=== PATIENT | male | born 2005 | race Caucasian/White ===

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

== ENCOUNTER 2025-01-29 23:14 | Emergency (ER) | payer OTHER ==
[~2025-01-29] VITALS: Ht 177.8 cm; Wt 68.0 kg
[2025-01-29 23:18] VITALS: BP 148/98
[2025-01-30] MEDS ORDERED: COMPAZINE10 MG PO (21:25)
== END 2025-01-30 01:52 | disposition left against medical advice (07) ==
LOC: ER 23:14
DX: S09.90XA Unspecified injury of head, initial encounter (principal); Z53.29 Procedure and treatment not carried out because of patient's decision for other reasons; W22.09XA Striking against other stationary object, initial encounter
CPT/HCPCS: 70450; 99282-25

== ENCOUNTER 2025-01-30 20:50 | Emergency (ER) | payer OTHER ==
[~2025-01-30] VITALS: Ht 180.3 cm; Wt 70.3 kg
[2025-01-30 21:15] VITALS: BP 145/90
[2025-01-30] MEDS ORDERED: Ketorolac Tromethamine 30mg Vial IM ONE (21:20)
[2025-01-30] MEDS ORDERED: Prochlorperazine Edisylate 10 mg Vial IM ONE (21:20)
[2025-01-30] MEDS ORDERED: COMPAZINE10 MG PO (21:25)
== END 2025-01-30 22:45 | disposition home or self-care (01) ==
LOC: ER 20:50
DX: S09.90XA Unspecified injury of head, initial encounter (principal); Z53.29 Procedure and treatment not carried out because of patient's decision for other reasons; Z79.899 Other long term (current) drug therapy; W50.0XXA Accidental hit or strike by another person, initial encounter
CPT/HCPCS: 99283-25